=== PATIENT | female | born 1945 | race Caucasian/White ===

== ENCOUNTER 2023-01-13 09:25 | Inpatient (IN) | payer MEDICARE, SELFPAY ==
[2023-01-06 15:10] VITALS: BMI 29.8
[2023-01-13] VITALS (9 sets, daily range): BP systolic 111–152; BP diastolic 63–81; PULSE 62–83; RESP 12–18; TEMP 36.4–36.9; O2SAT 95–99; BMI 29.8
--- NOTE | 2023-01-13 | DI.RAD.S_ITS ---
PROCEDURE: XR LUMBAR SPINE 2-3V INDICATIONS: L4-5 L5-S1 TLIF TECHNIQUE: 3 views of the lumbar spine were acquired. COMPARISON: [facility], MR, MR LUMBAR SPINE WITHOUT CONTRAST, 02/05/2022, 17:24. [facility], RF, LUMBAR SPINE INTERIAMINAR, 10/21/2022, 10:12. [facility], CT, CT LUMBAR SPINE WITHOUT CONTRAST, 01/11/2023, 13:47. FINDINGS: 2 intraoperative fluoroscopy images demonstrate discectomy and posterior fusion at L4-L5 and L5-S1. IMPRESSION: Discectomy and posterior fusion at L4-L5 and L5-S1. Dictated by: Edwin Younger M.D. on 01/13/2023 at 16:48 Approved by: Edwin Younger M.D. on 01/13/2023 at 16:50
[2023-01-13] MEDS: LACTATED RINGERS 1,000 ML 42 ML IV (10:46)
--- NOTE | 2023-01-13 11:08 | PM.PREOP ---
Pre-operative Note Interval Note History & Physical reviewed/Exam performed by Physician: Yes Changes to H&P: No
[2023-01-13] MEDS: CEFAZOLIN 2 GM/100 ML PREMIX 100 ML IV ×2 (12:25→20:57)
[2023-01-13] MEDS: BUPIVACAINE 0.25% (PF) 60 ML, EPINEPHrine 0.15 MG INJ (12:41)
[2023-01-13] MEDS: BUPIVACAINE LIPOSOME 266 MG/20 ML VIAL INJ (12:42)
--- NOTE | 2023-01-13 12:44 | SUR.OPER ---
Prone on spine table, head in foam head support, padded chest and pelvic supports, gel pad at knees, lower legs supported by pillows; nipples, genitalia and toes free of pressure, arms secured on foam padded arm boards at <90 degrees abduction. Tape over blanket at thigh secured to table.
--- NOTE | 2023-01-13 16:08 | P.OP_ITS ---
Operative Date/Time/Diagnoses Date of procedure: 01/13/23 Time of procedure: 12:30 Pre-op diagnosis: 1. L4-5, L5-S1 post laminectomy syndrome 2. L4-5, L5-S1 spinal stenosis 3. Lumbar radiculopathy Post-op diagnosis: same Procedure & Clinicians Procedure: 1. L4-5, L5-S1 Postero-lateral and posterior interbody fusion 2. L4-5, L5-S1 interbody cage placement. 3. L4-5, L5-S1 decompressive laminectomy with bilateral facetecomies 4. L4-5, L5-S1 Posterior segmental instrumentation 5. [place] of bone marrow from iliac crest 6. Utilization of microsurgical technique and operating microscope 7. Utilization of robotic assisted navigation Same procedure as scheduled: Yes Indications: Patient has been having chronic back pain and worsening lumbar radiculopathy and symptoms of neurogenic claudication. Patient had prior laminectomies at L4-5 L5-S1 level with significant amount of epidural scarring and residual spinal stenosis both centrally and the neural foramen. Patient failed multiple conservative management with worsening pain weakness and numbness in her lower extremity. Patient has been having difficulty performing activity of daily living. After discussing risks benefits of treatment options, patient elected proceed with surgery. Surgeon: Papa Sutherland Minesweeping Officer: Delores Morin Click Yes if Unassisted: No Anesthesia Type: General Operative Notes Closure Type: primary Specimen(s): none sent Prosthetic devices, grafts, tissues, transplants, or devices: Globus CREO MIS screws, Rise cages Applied: catheter Estimated Blood Loss (mL): 250 Blood products transfused: none Procedure in detail: Patient was seen in the preoperative area. Risks and benefits of the surgery was discussed with the patient. Informed consent was obtained from the patient and placed in the chart. Surgical site was marked. Patient was taken to the operative room. General anesthesia was administered. Prophylactic antibiotic was given to the patient less than 30 min before the incision was made. Patient was placed into a prone position on the Jose table. Patient's back was then prepped and draped in the sterile fashion. Time-out was performed at this time. After patient was prepped and draped, patient's PSIS was palpated and marked bilaterally. Small 1 cm incision was made over the PSIS for placement of the reference probes. Two trocar was placed into the PSIS 1 on each side. The reference probe was attached to the trocar of the reference apparatus. At this time the C-arm imaging was used to confirm AP and lateral of L4-L5, L5- S1 vertebrae and merged the C-arm imaging using the [employer] robotic navigation system with the CT of the lumbar spine. After successful merging was completed and confirmed, skin marker was used to yenni out the skin incision using the [employer] robotic arm. Bilateral incision was made at this time. Pre templated trajectory was used and guided using the [employer] robotic navigation system for bilateral L4, L5, S1 pedicle screw placement. This was done by using the robotic arm to guide the high-speed bur to make a cortical entry point. Next a drill was placed also using the robotic arm and guided using the navigation system drilling partially through bilateral L4, L5 and S1 pedicles. Next L4, L5, S1 pedicle screws it was pre templated and measured was placed onto the power ems driver and inserted into the pedicles bilaterally. After all 6 screws were placed C-arm imaging was taken of both AP and lateral to confirm the placement. Excellent placement of the screws were confirmed and a matched precisely with the pre planned screw placement using the navigation system. MARs retractor was inserted using Shelby.tvivation guidence. Globus MARS retractors was placed inside the incision and docked onto the L4 and L5 lamina. Using microsurgical technique and operating microscope, a L4, L5 laminectomy and L4-5, L5-S1 facetectomy was performed using a Kerrison rongeur. The laminectomy and facetectomy was performed in order to decompress patient's cauda equina as well as the nerve roots exiting at the L4-5, L5-S1 level. Patient was found have severe lateral recess and neural foramen stenosis which was fully decompressed after the laminectomy facetectomy. More than 75% of the facets were removed during the process of decompression rendering L4-5, L5-S1 level grossly unstable and required a fusion procedure at the same time. The disc space at L4-5, L5-S1 was identified, and a total diskectomy was performed at L4-5, L5-S1 level. The endplates were decorticated using a rasp and shaver. The total diskectomy and decortication was performed at L4-5, L5-S1 level in order to to accomplish a L4- 5, L5-S1 fusion. The local bone from the laminectomy and facetectomy was saved for local bone grafting. After the total diskectomy and decortication was completed, Trifecta bone graft material was combined with local bone that was harvested earlier. At this time, a separate skin is incision was made over the iliac crest. A Jamshidi needle was inserted into the iliac crest through a separate skin incision. 5 cc of bone marrow aspiration was obtained through the separate skin incision using a Jamshidi needle from the iliac crest. The bone marrow aspiration was combined with local bone and the Trifecta bone grafting material. The bone grafting material was placed into the L4-5, L5-S1 interbody space along with a expandable cage. The cage was expanded to its maximum height using the torque limiting screwdriver. The disc preparation as well as the cage insertion were also performed under navigation guidance. After the cage was placed, AP and lateral C-arm imaging was taken to confirm placement of the cage and excellent position was confirmed. Globus MARS retractor was inserted and docked onto the L4-5, L5-S1 posterolateral gutter on the right side. Using the power drill, posterior- lateral decortication was performed at L4-5, L5-S1 level until bleeding cortical bone was identified. The remaining bone grafting material was placed into the L4-5, L5-S1 posterior lateral gutter he order to accomplish posterolateral fusion at the L4-5, L5-S1 level. At this time the tulips were attached to the L4, L5, S1 pedicle screw shanks. After measuring the length of the rods, they were inserted into the tulips of the pedicle screws and locked in place using locking caps and torque limiting screwdriver bilaterally. Total 6 caps and 2 titanium rods was used in order to complete the posterior instrumentation construct. After all the hardware was placed, and confirmed with AP and lateral C-arm imaging, the wound was then irrigated with sterile normal saline and packed with Ray-Sofia gauze for 3 min to accomplish hemostasis. After the gauze was removed the deep fascia was closed with #1 Vicryl suture. The subcutaneous layer was closed with 2-0 Vicryl. The skin was closed with skin werner. Patient tolerated the procedure well. There were no complications. Neuro monitoring system was used to monitor patient's neurologic status throughout entire procedure. There was no disturbance of the neural monitoring signals throughout the case. The Operation could not have been safely performed without compromising the technical result or length of the procedure, without the assistance of a skilled surgical scrub technician. The surgical scrub technician was medically necessary for proper positioning, retraction and manipulation of instruments, proper exposure, surgical preparation, and manipulation of tissue. Complications: none Post-operative Condition: stable Disposition: PACU Plan for aftercare: Admit to inpatient hospital
[2023-01-13] MEDS: HYDROMORPHONE 1 MG INJ IV ×2 (16:31→16:36)
--- NOTE | 2023-01-13 16:55 | SUR.PHASEI ---
left upper lip skin tear and bilateral anterior hip redness and skin tears from positioning and intubation.
[2023-01-13] MEDS: hydrOXYzine pamoate 25 MG CAPSULE PO (18:00)
[2023-01-13] MEDS: HYDROCODONE/ACET 5/325 TABLET 1 TAB PO (18:02)
[2023-01-13] MEDS: LACTATED RINGERS 1,000 ML 125 ML IV (18:04)
[2023-01-13] MEDS: ONDANSETRON 4 MG/2 ML INJ IV (18:04)
--- NOTE | 2023-01-13 19:02 | PC.NURSE ---
Patient arrived from Post op at 1715, VSS, afebrile on RA. Instructed to keep HOB flat only up for brief periods until 7a.m. Sensation to BLE's intact per baseline. She denies any numbness/tingling to extremities. dressing to back c/d/i. She is instructed on IS use, q 2 turning, latif in place, LR at 125ml/hr and she reports pain is well controlled. Continuous monitoring.
[2023-01-13] MEDS: DOCUSATE 100 MG CAPSULE PO (20:56)
[2023-01-13] MEDS: HYDROMORPHONE 0.5 MG INJ IV ×2 (20:57→23:17)
[2023-01-14] VITALS: BP 124/68; PULSE 66; RESP 17; TEMP 36.4; O2SAT 96
[2023-01-14] MEDS: HYDROCODONE/ACET 10/325 TABLET 1 TAB PO ×6 (00:07→20:49)
[2023-01-14] MEDS: hydrOXYzine pamoate 25 MG CAPSULE PO ×3 (00:07→18:12)
[2023-01-14] MEDS: HYDROMORPHONE 0.5 MG INJ IV (01:53)
[2023-01-14] MEDS: LACTATED RINGERS 1,000 ML 125 ML IV (03:04)
[2023-01-14] MEDS: CEFAZOLIN 2 GM/100 ML PREMIX 100 ML IV (04:22)
[2023-01-14 04:50] LABS: Hematocrit 33.4 % (36-46); Hemoglobin 11.5 g/dL (12.0-16.0)
[2023-01-14 05:01] VITALS: BP 92/64; PULSE 62; RESP 18; TEMP 36.8; O2SAT 94
--- NOTE | 2023-01-14 06:13 | PM.PNPO.1 ---
Subjective Subjective Date Patient Seen: 01/14/23 Time Patient Seen: 06:13 Exam Vital Signs (past 8 hours): - 01/14/23 00:00 01/14/23 05:01 Temperature 97.5 F L 98.2 F Pulse Rate 66 62 Respiratory Rate 17 18 Blood Pressure 124/68 92/64 Pulse Oximetry 96 94 Oxygen Delivery Method Nasal Cannula Oxygen Flow Rate 0 Objective Labs 01/14/23 04:20 Labs: Laboratory Results - last 24 hr 01/14/23 04:20 Hgb 11.5 L Hct 33.4 L PFSH Medical History (Updated 01/14/23 @ 06:14 by Delores Morin PA-C) Ankle edema Frequent UTI HTN (hypertension) Surgical History (Updated 01/14/23 @ 06:14 by Delores Morin PA-C) H/O total hip arthroplasty History of cholecystectomy History of tonsillectomy Hx of discectomy S/P cataract extraction and insertion of intraocular lens Social History household members: spouse Smoking Status: Former smoker Assessment & Plan Post-op Assessment and plan (1) S/P lumbar fusion: (2) Dural tear: Postoperative Procedures: Procedures Operation Date: 01/13/23 11:45 Actual Procedure Side Surgeon p L4-5, L5-S1 TLIF with posterior instrumentation -Robot Papa Sutherland MD
--- NOTE | 2023-01-14 06:57 | P.DS_ITS ---
History of Present Illness History of Present Illness Date Patient Seen: 01/14/23 Time Patient Seen: 06:57 Chief complaint: TLIF Narrative: Operative Date/Time/Diagnoses Date of procedure: 01/13/23 Time of procedure: 12:30 Pre-op diagnosis: 1. L4-5, L5-S1 post laminectomy syndrome 2. L4-5, L5-S1 spinal stenosis 3. Lumbar radiculopathy Post-op diagnosis: same Procedure & Clinicians Procedure: 1. L4-5, L5-S1 Postero-lateral and posterior interbody fusion 2. L4-5, L5-S1 interbody cage placement. 3. L4-5, L5-S1 decompressive laminectomy with bilateral facetecomies 4. L4-5, L5-S1 Posterior segmental instrumentation 5. [place] of bone marrow from iliac crest 6. Utilization of microsurgical technique and operating microscope 7. Utilization of robotic assisted navigation Same procedure as scheduled: Yes Indications: Patient has been having chronic back pain and worsening lumbar radiculopathy and symptoms of neurogenic claudication.? Patient had prior laminectomies at L4-5 L5-S1 level with significant amount of epidural scarring and residual spinal stenosis both centrally and the neural foramen. Patient failed multiple conservative management with worsening pain weakness and numbness in her lower extremity.? Patient has been having difficulty performing activity of daily living.? After discussing risks benefits of treatment options, patient elected proceed with surgery. Surgeon: Papa Sutherland Terrazzo Worker: Delores Morin Click Yes if Unassisted: No Anesthesia Type: General Operative Notes Closure Type: primary Specimen(s): none sent Prosthetic devices, grafts, tissues, transplants, or devices: Globus CREO MIS screws, Rise cages Applied: catheter Estimated Blood Loss (mL): 250 Blood products transfused: none Discharge Providers Provider Date of admission: 01/13/23 09:25 Discharge Date: 01/14/23 Primary care physician: BRIDGET Valladares Consults: 01/13/23 17:15 Consult to Occupational Therapy Evaluate & Treat Comment: Physician Instructions: Evaluate and treat Consult to Physical Therapy Evaluate & Treat Comment: Physician Instructions: Evaluate and Treat Discharge provider: Delores Morin PA-C Summary Hospital Course Discharge Diagnosis: L4-5, L5-S1 post laminectomy syndrome, L4-5, L5-S1 spinal stenosis, Lumbar radiculopathy; s/p lumbar fusion Hospital Course: Ms Ceron's hospital course was unremarkable. During surgery, a dural tear on the right was repaired w/ duragen and tisseel, and her HOB was left flat overnight. On the morning of POD# 1, the HOB was raised to about 30 degrees during interview and exam. Pt denied headache. She has a h/o spinal headache following anesthetic for childbirth and knows what a CSF-related KHAN feels like. She was comfortable and wanted to go home later in the day if possible. She had not yet worked w/ PT and still had a latif catheter in place. Exam Vital Signs (past 8 hours): - 01/14/23 00:00 01/14/23 05:01 Temperature 97.5 F L 98.2 F Pulse Rate 66 62 Respiratory Rate 17 18 Blood Pressure 124/68 92/64 Pulse Oximetry 96 94 Oxygen Delivery Method Nasal Cannula Oxygen Flow Rate 0 Narrative Exam Narrative: 5/5 strength in hip flexors, quadriceps, hamstrings, DF, PF, EHL bilaterally. Sensation to light touch intact throughout BLE. Calves soft, compressible, nontender and without palpable cords or masses. Dressing placed intraoperatively is CDI. Objective Labs 01/14/23 04:20 Labs: Laboratory Results - last 24 hr 01/14/23 04:20 Hgb 11.5 L Hct 33.4 L PFSH Medical History (Updated 01/14/23 @ 06:14 by Delores Morin PA-C) Ankle edema Frequent UTI HTN (hypertension) Surgical History (Updated 01/14/23 @ 06:14 by Delores Morin PA-C) H/O total hip arthroplasty History of cholecystectomy History of tonsillectomy Hx of discectomy S/P cataract extraction and insertion of intraocular lens Social History household members: spouse Smoking Status: Former smoker Discharge Assessment & Plan Assessment and Plan Assessment: L4-5, L5-S1 post laminectomy syndrome, L4-5, L5-S1 spinal stenosis, Lumbar radiculopathy; s/p lumbar fusion Plan of Treatment: Pt may discharge home today if the following parameters are met: 1) No spinal headache. If pt has headache, return to bedrest w/ HOB flat, alert surgical team (Ena or Mikel). 2) PT feels pt appropriate for discharge home. 3) Pt voiding independently. 4) Pain continues to be well-controlled w/ oral medication. Discharge Plan Discharge Plan Patient Disposition: Home Discharge orders & Medications Prescriptions: New hydrocodone-acetaminophen 5-325 mg Tablet 1 tab PO Q4HR PRN (Reason: Pain, Moderate (4-6)) Qty: 60 0RF docusate sodium 100 mg Capsule 100 mg PO BID PRN (Reason: constipation) Qty: 60 1RF hydroxyzine pamoate 25 mg Capsule 25 mg PO Q4HR PRN (Reason: muscle spasm) Qty: 60 0RF Continued hydrochlorothiazide 25 mg Tablet 25 mg PO DAILY Follow up/Referrals: Nahomy Garvey ARNP [Primary Care Provider] - Papa Sutherland MD [Physician] - As previously scheduled (Follow up with Dr Sutherland on 01/26/2023 @ 2:20 pm at [facility] office in [place].) Diet/Activity/Treatments Diet: Diet as Tolerated Activity: No deep bending or twisting at the waist. No lifting more than 10 pounds. Cold/Heat Therapy: Heating pad to low back as needed for pain. Skin/Wound/Dressing Care Report to your healthcare provider any signs of infection, such as:: chills, fever, night sweats, unusual drainage and unusual redness Dressing: May shower. Keep dressing as dry as possible. If dressing becomes wet or dirty, may remove and replace with clean, dry gauze. No bathing or otherwise soaking incisions. Do not apply any creams, lotions, or ointments to incisions. Visit Report/Discharge Packet Instructions: DI for Transforaminal Lumbar Interbody Fusion, DI for Prescription Opioid Use Stand Alone Forms: Patient Portal/API, Stroke Signs & Symptoms, Surgery Discharge Discharge Data Primary Care Provider: Nahomy Garvey
[2023-01-14 07:00] VITALS: BP 114/62; PULSE 61; RESP 16; TEMP 36.9; O2SAT 96
[2023-01-14] MEDS: DOCUSATE 100 MG CAPSULE PO ×2 (08:06→20:48)
--- NOTE | 2023-01-14 08:52 | PT.IIE ---
Current Diagnoses Spinal stenosis, lumbar region with neurogenic claudication (01/13/23) Postlaminectomy syndrome, not elsewhere classified (01/13/23) Arthrodesis status (01/13/23) Surgery Performed Operation Date: 01/13/23 11:45 Actual Procedures p L4-5, L5-S1 TLIF with posterior instrumentation -Robot - Papa Sutherland MD Surgical History (Last Updated 01/06/23 @ 15:12 by Francisco Gaspar, RN) H/O total hip arthroplasty History of cholecystectomy History of tonsillectomy Hx of discectomy S/P cataract extraction and insertion of intraocular lens Medical History (Last Updated 01/06/23 @ 15:08 by Francisco Gaspar RN) Ankle edema Frequent UTI HTN (hypertension) Physical Therapy Inpatient Evaluation/Re-Eval M1 PT/OT-IP Prior Functional Status Start: 01/14/23 12:04 Freq: NEEDED Status: Active Protocol: Document 01/14/23 12:44 AB (Rec: 01/14/23 13:08 AB [id number]) Medical Review Prior Functional Status Medical History Reviewed Yes Communication Independent Mobility and Gait Pt did not use AD for mobility . Activities of Daily Living and IADL's Pt had pain with ADL and IADL needs. Social History Household Members spouse Living Arrangements House Number of Floors (Floors) Two Floors Number of Stairs To Enter/Railing? Pt able to stay on the main floor with no steps to enter. Home Environment High Toilet,Tub/Shower Home Equipment Front Wheel Walker,Four Wheel Walker,Straight Cane,Bedside Commode,Shower Seat without Backrest,Hand Held Shower,Grab Bars Near Toilet,Grab Bars In Shower Additional Social History Comment Pt states has supportive to be able to asisst at home. M1 PT/OT-IP Prior Functional Status Start: 01/14/23 12:44 Freq: NEEDED Status: Active Protocol: Document 01/14/23 12:44 AB (Rec: 01/14/23 13:08 AB [id number]) Medical Review Prior Functional Status Medical History Reviewed Yes Communication Independent Mobility and Gait Pt did not use AD for mobility . Activities of Daily Living and IADL's Pt had pain with ADL and IADL needs. Social History Household Members spouse Living Arrangements House Number of Floors (Floors) Two Floors Number of Stairs To Enter/Railing? Pt able to stay on the main floor with no steps to enter. Home Environment High Toilet,Tub/Shower Home Equipment Front Wheel Walker,Four Wheel Walker,Straight Cane,Bedside Commode,Shower Seat without Backrest,Hand Held Shower,Grab Bars Near Toilet,Grab Bars In Shower Additional Social History Comment Pt states has supportive to be able to asisst at home. M2 PT-IP Current Condition Start: 01/14/23 12:44 Freq: NEEDED Status: Active Protocol: Document 01/14/23 12:44 AB (Rec: 01/14/23 13:08 AB [id number]) Physical Therapy Current Condition Current Condition Evaluation Date 01/14/23 Treatment Diagnosis s/p lumbar TLIF L4-5, L5-S1 Onset Date 01/13/23 M3 PT-IP Subjective Start: 01/14/23 12:44 Freq: NEEDED Status: Active Protocol: Document 01/14/23 12:44 AB (Rec: 01/14/23 13:08 AB [id number]) Subjective Physical Therapy Visit Type Type Initial Evaluation Visit Start Time 08:52 Visit Stop Time 09:32 Total Visit Minutes 42 Physical Therapy Visit Comments Patient Comments Pt presents in bed with in room perofrming OT eval. The pt is agreeable to PT eval this morning. Therapy Pain Assessment Pain When Pain Assessed During Mobility Pain Present Pain Present Pain Reported Location Lower Back Intensity 3 Pain Management Techniques Re-positioning M4 PT-IP Mobility and Gait Start: 01/14/23 12:44 Freq: NEEDED Status: Active Protocol: Document 01/14/23 12:44 AB (Rec: 01/14/23 13:08 AB [id number]) PT-Bed Mobility Assessment Rolling Type of Rolling Log Rolling Level of Assist Standby Assistance Supine to Sit Supine to Sit Standby Assistance Sit to Supine Sit to Supine Standby Assistance Scooting Scooting to Edge of Bed Standby Assistance Scooting Up and Down in Bed Standby Assistance PT-Transfer Assessment Sit to and From Stand Sit to and from Stand Minimal Assistance,2 Person Assistance Equipment Transfer Assistive Device Gait Belt,Front Wheeled Walker Transfers Transfer Destination Bed,Chair Transfer Technique Stand Step Pivot Transfer Ability Level of Assist Contact Guard Assistance,2 Person Assistance Comments Mobility Comments 2PA was required to perform STS and transfer due to pt having posterior LOB on to bed when attempting STS for the first time, due to weakness and bilateral LEs giving out. Pt's BP in supine is 105/45 mmHg, elevated to 114/48 in sitting and 126/68 after a few minutes in sitting, and dropped to 103/58 accompanied by mild lightheadedness. Further mobility was not assessed due to orthostatic hypotension. Pt transferred chair<>bed and returned to supine position. BP improved to 113/65 in supine. All of the pt's needs were met and call light was placed within reach. RN was notified of findings. Gait Assessment Comments Gait Comments Further mobility was not assessed due to orthostatic hypotension. However, pt is able to take a couple of steps forward and laterally to perform bed<>chair transfer. Stair Climbing Assessment Comments Stair Climbing Comments Further mobility was not assessed due to orthostatic hypotension. PT-Balance Assessment Sitting Balance and Reactions Static Sitting Balance Ability Good Dynamic Sitting Balance Ability Fair Standing Balance and Reactions Static Standing Balance Ability Poor Dynamic Standing Balance Ability Poor Device Used FWW M5 PT-IP Objective Assessments Start: 01/14/23 12:44 Freq: NEEDED Status: Active Protocol: Document 01/14/23 12:44 AB (Rec: 01/14/23 13:08 AB [id number]) Orientation Orientation/Cognition Level of Alertness Alert Orientation Name,Age,Birthday,Month,Date, Year,Day of Week,Place, Situation Language Function Ability No Deficits Noted Safety Awareness Understands Safety Issues Memory Description No Deficits Noted Gross Range of Motion Upper Extremity ROM Assessment Within Functional Limits Lower Extremity ROM Assessment Within Functional Limits Strength Upper Extremity Strength Assessment Within Functional Limits Lower Extremity Strength Assessment Bilaterally Impaired Comments Strength Comments bilateral hip flexors: 3+/5 bilateral knee extensors: 4/5 M6 PT-IP Treatment Start: 01/14/23 12:44 Freq: NEEDED Status: Active Protocol: Document 01/14/23 12:44 AB (Rec: 01/14/23 13:08 AB [id number]) Physical Therapy Treatment Education Education Provided Precautions,Weight Bearing Status,Post-Op Packet,Safety Brace Education Patient M7 PT-IP Assessment and Plan Start: 01/14/23 12:44 Freq: NEEDED Status: Active Protocol: Document 01/14/23 12:44 AB (Rec: 01/14/23 13:08 AB [id number]) PT Summary Assessment and Plan Potential Rehabilitation Potential Good Status of Condition at Evaluation Stable Summary Impairments Pain,ROM,Strength,Balance,Bed Mobility,Transfers,Gait, Activity Tolerance Assessment Summary Evelia Ceron is a 77 year old female patient who is s/p lumbar TLIF L4-5, L5-S1 performed on 01/13/23. Today's PT evaluation revealed BLE weakness, and the pt had orthostatic hypotension when performing mobility. Currently , she required SBA for bed mobility, but required Juan to [facility] x2 for STS and transfers due to weakness, as detailed above. Further mobility was not performed this session due to orthostatic hypotension. Based on her current level of function and expected progress , PT recommends discharge to home with assistance. She would benefit from skilled PT intervention to help her return to her highest level of function. Goals Bed Mobility Goal Independent Transfer Goal Standby Assistance,Front Wheeled Walker Gait Goal Standby Assistance,Front Wheel Walker Gait Distance 100 Other Goals Pt to ambulate 100 ft independently with LRAD to show improving ability to perform functional mobility. Pt to perform transfer independently with FWW or no AD to show improving ability to perform functional mobility . Days to Meet Goals 5 Frequency of Treatment Frequency Of Treatment Twice a Day Treatment Plan Physical Therapy Treatment Plan Bed Mobility Training,Transfer Training,Gait Training, Therapeutic Exercise,Balance Retraining,Post Op Education, Discharge Planning,Hot or Cold Pack,Neuromuscular Re-ed, Coordination Retraining,Manual Therapy Precautions Lumbar Precautions Log Roll,No Twisting,Limit Bending,Lifting Restriction of 10 lbs,Gait Belt above Incisional Area Weight Bearing Status Weight Bearing Status Weight Bear as Tolerated Recommendations To Nursing Amount of Assist Needed 2 Person Assist Discharge Recommendations PT Discharge Recommendations Home with Assistance, Outpatient PT Other Discharge Recommendations Outpatient PT is recommended at surgeon's discretion to improve deficits. Transportation Needs at Discharge Private Vehicle
--- NOTE | 2023-01-14 09:32 | OT.IP.EVAL ---
Current Diagnoses Spinal stenosis, lumbar region with neurogenic claudication (01/13/23) Postlaminectomy syndrome, not elsewhere classified (01/13/23) Arthrodesis status (01/13/23) Surgery Performed Operation Date: 01/13/23 11:45 Actual Procedures p L4-5, L5-S1 TLIF with posterior instrumentation -Robot - Papa Sutherland MD Past Medical History (Last Updated 01/06/23 @ 15:08 by Francisco Gaspar, RN) Ankle edema Frequent UTI HTN (hypertension) Surgical History (Last Updated 01/06/23 @ 15:12 by Francisco Gaspar RN) H/O total hip arthroplasty History of cholecystectomy History of tonsillectomy Hx of discectomy S/P cataract extraction and insertion of intraocular lens Occupational Therapy Inpatient Evaluation/Re-Eval M1 PT/OT-IP Prior Functional Status Start: 01/14/23 12:04 Freq: NEEDED Status: Active Protocol: Document 01/14/23 08:48 [facility] (Rec: 01/14/23 12:31 [facility] [id number]) Medical Review Prior Functional Status Communication Independent Activities of Daily Living and IADL's Pt had pain with ADL and IADL needs. Social History Household Members spouse Living Arrangements House Number of Floors (Floors) Two Floors Number of Stairs To Enter/Railing? Pt able to stay on the main floor with no steps to enter. Home Environment High Toilet,Tub/Shower Home Equipment Front Wheel Walker,Four Wheel Walker,Straight Cane,Bedside Commode,Shower Seat without Backrest,Hand Held Shower,Grab Bars Near Toilet,Grab Bars In Shower Additional Social History Comment Pt states has supportive to be able to assist at home. M2 OT-IP Current Condition Start: 01/14/23 12:04 Freq: Status: Active Protocol: Document 01/14/23 08:48 [facility] (Rec: 01/14/23 12:31 [facility] [id number]) Occupational Therapy Current Condition Current Condition Evaluation Date 01/14/23 Treatment Diagnosis S/P L4-5 , L5-S1 PLIF Diagnosis Onset Date 01/13/23 M3 OT- IP Subjective and Pain Start: 01/14/23 12:04 Freq: Status: Active Protocol: Document 01/14/23 08:48 [facility] (Rec: 01/14/23 12:31 [facility] [id number]) OT- Subjective Occupational Therapy Visit Type Type Initial Evaluation Visit Start Time 08:48 Visit Stop Time 09:32 Total Visit Minutes 44 Occupational Therapy Visit Comments Patient Comments Pt agreed to get up. PT also present for therapy eval. Patient/Caregiver Goals To go home. OT Pain Assessment Pain When Pain Assessed At Rest Pain Present Pain Present Pain Reported Location Lower Back Intensity 3 Scale Used Numeric (0 - 10) M4 OT- IP ADL's Start: 01/14/23 12:04 Freq: Status: Active Protocol: Document 01/14/23 08:48 [facility] (Rec: 01/14/23 12:31 [facility] [id number]) OT [id number]-[id number] General Evaluation Self-Feeding Ability Independent OT ADL-Grooming Comments OT Grooming Comments Not performed. OT ADL-Oral Care Comments Oral Care Comments Educated best for pt to hinge at her hips or just spit into a cup to best follow her back precautions. OT ADL-Dressing General Eval Lower Body Dressing Ability Maximum Assistance Areas Needing Assistance Socks Comments OT Dressing Comments At this time pt would benefit from getting LB dressing equipment or have her to assist. Able to show LB dressing equipment to pt. OT ADL-Toileting Comments OT Toileting Comments At this time pt would have difficulty to wipe on her own as pt wipes from the front even after a bowel movement. Able to show pt toilet paper aid which would increased her ease and safety to be able follow her back precautions during toileting needs. In addition use of wet one and wearing a pad at night. OT ADL-Bathing Comments OT Bathing Comments Pt will benefit from assist from her . M5 OT- IP IADL's Start: 01/14/23 12:04 Freq: Status: Active Protocol: Document 01/14/23 08:48 [facility] (Rec: 01/14/23 12:31 [facility] [id number]) OT-Instrumental Activities of Daily Living Deficits IADL Deficits Identified Deficits Home Safety Awareness Awareness of Need for Assistance at Home Good Awareness Ability to Problem Solve Emergency Able to Problem Solve Situations Meal Preparation Meal Preparation Comments At this time her will assist her. Drum Worker Drum Worker Comments At this time her will assist her. M6 OT- IP Functional Cognition Start: 01/14/23 12:04 Freq: Status: Active Protocol: Document 01/14/23 08:48 [facility] (Rec: 01/14/23 12:31 [facility] [id number]) Cognitive Factors Limiting Selfcare Function Cognitive Ability Level of Alertness Alert Patient Orientation Name,Age,Birthday,Month,Date, Year,Day of Week,Place, Situation Attention Span Ability Capable of Focused Attention, Capable of Sustained Attention Ability to Follow Commands Able to Follow One Step Commands Cognitive Comments Cognitive Assessment Comments Pt able to follow directions for ADL and mobility needs. Pt needing safety reminders to use her hands to push up from surfaces sitting up from and to reach back before sitting down. OT- Vision and Hearing OT- Hearing Assessment OT- Hearing Assessment WFL OT- Vision Assessment Visual Acuity Glasses All The Time M7 OT- IP Mobility and Balance Start: 01/14/23 12:04 Freq: Status: Active Protocol: Document 01/14/23 08:48 [facility] (Rec: 01/14/23 12:31 [facility] [id number]) OT- Bed Mobility Assessment Supine to Sit Supine to Sit Assist Standby Assistance Sit to Supine Sit to Supine Assist Standby Assistance Scooting Scooting to Edge of Bed Standby Assistance OT-Transfer Assessment Sit to and From Stand Sit to and from Stand Minimal Assistance Transfers Transfer Ability Contact Guard Assistance,2 Person Assistance Technique Transfer Destination Bed,Chair Transfer Technique Stand Step Pivot Devices Transfer Assistive Devices Gait Belt,Front Wheeled Walker Comments Mobility Comments SBA for bed mobility needs. PIOTR to stand to FWW and pt buckling at her knees and having to sit down, reattempted and CGA x2 to stand mainly for safely due to prior her knees buckling. Pt able to transfer to the recliner and feeling light headed but felt it was from her medications. Opted to get pt back to bed with CGA x2 with FWW and nursing notified. BP supine 105/45, sitting 114/ 48, 126/68, 114/60, after standing 103/58 and back in bed 113/65. OT- Balance Assessment Sitting Balance and Reactions Static Sitting Balance Ability Good Dynamic Sitting Balance Ability Fair Standing Balance and Reactions Static Standing Balance Ability Poor M8 OT- IP Objective Assessments Start: 01/14/23 12:04 Freq: Status: Active Protocol: Document 01/14/23 08:48 [facility] (Rec: 01/14/23 12:31 [facility] [id number]) OT Gross Range of Motion Upper Extremity Range of Motion Assessment Within Functional Limits OT Strength Upper Extremity Strength Assessment Within Functional Limits M9 OT- IP Assessment and Plan Start: 01/14/23 12:04 Freq: Status: Active Protocol: Document 01/14/23 08:48 [facility] (Rec: 01/14/23 12:31 [facility] [id number]) OT Summary Assessment and Plan Potential Rehabilitation Potential Good Analytic Complexity at Evaluation Low Summary OT Impairments Pain,Balance,Functional Mobility,Dressing,Toileting, Bathing,Toilet Transfers, Shower Transfers,Activity Tolerance Progress Towards Goals Slow Progress due to Medical Issues Assessment Summary Pt low complexity and main barriers are her legs buckling initially when getting up , having orthostatic BP at this time, and will needing assist for dressing, toileting, and showering needs. Pt would benefit from getting LB dressing equipment and a toilet paper aid. Pt to go home when medically stable. Goals Grooming Goal Independent Dressing Goal Independent Toileting Goal Independent Bathing Goal Independent Toilet Transfer Goal Independent Shower Transfer Goal Independent Patient/Caregiver Education Goal Demonstrate Energy Conservation and Pacing Days to Meet Goals 5 Frequency of Treatment Frequency Of Treatment Once a Day Treatment Plan OT Treatment Plan ADL Training,Functional Mobility,Patient/Family Education,Discharge Planning Discharge Recommendations OT Discharge Recommendations Home with Assistance Home Equipment Needs Lb dressing equipment, toilet paper aid Transportation Needs at Discharge Private Vehicle
[2023-01-14 12:00] VITALS: BP 101/53; PULSE 66; RESP 16; TEMP 36.8; O2SAT 93
--- NOTE | 2023-01-14 13:25 | CM.DANOTE ---
Initial DCP Assessment Note Pt is a 77 yo female, resident of [place], [place] now POD#[address] Sutherland PCP: Nahomy Garvey Payer: [employer] Reviewed chart, pt discussed in multidisciplinary rounds this morning. Therapy has cleared pt for return home w/family to assist and pt has planned for home, DC order from Ortho has already been initiated this morning. Met w/patient and spouse to introduce self and role. Patient lives at home w/spouse in [place] and is Indp. in all aspects, drives. Patient has hx of HH after her hip surgery, cannot remember which agency. No hx SNF Patient expects to discharge home w/spouse, says she has not been up w/PT yet and BP has been low this morning so she may need to stay this evening, return home tomorrow. No barriers identified at this time to patient's safe discharge home w/family to assist; close outpatient f/u recommended. CM team will plan to follow closely in case any DC needs or concerns arise. TENNILLE Sanchez Discharge Planning/Care Management CM Discharge Assessment Start: 01/14/23 13:19 Freq: Status: Active Protocol: Document 01/14/23 13:23 [facility] (Rec: 01/14/23 13:25 [facility] [id number]) Discharge Planning Assessment Assigned Food Service Utility Worker TENNILLE Byrd DPOA/Assigned Designee Name Narinder rudolph spouse Contact Information [phone] Advance Directives? Yes Advance Directives on File Yes History Provided By Patient,Medical Record Prior Living Arrangements House Household Members spouse Type of transporation used prior to Drives own vehicle admit Independent with ADL's Yes Is patient alert and oriented? Yes Needs Assistance With Home Chores / Shopping Patient/Family Preference OP PT Therapy Barriers to Discharge No Discharge Plan Home Transportation Arrangement Spouse Referrals Initiated None needed Whiteboard Updated in Patient Room with Yes name and ext. # of Food Service Utility Worker Comment Goal for discharge is home w/ spouse, DOD today or tomorrow
--- NOTE | 2023-01-14 14:08 | PC.NURSE ---
Addendum entered by Suzan Montano R.N. 01/14/23 14:31: PA returned call informing that some numbness is normal. RN at bedside notified patient. PT at bedside working with patient. Original Note: Patient's HCTZ medication held this a.m. for soft BP and patient getting 10/325 mg hydrocodone. Patient reports pain well controlled this a.m. with PRN po medications. She is able to stand with PT, this a.m. with a slight drop in BP she denies feeling dizzy. She has latif dc'd at 11:15 this a.m. and is able to void at 1330.She reports some numbness to B thighs (on the top) after getting up to the BSC, but normal sensation below. She is able to void x1 small void at 1330. Endorsed to oncoming RN notified PA of new numbness to tops of thighs. Pt is due to work with PT once again this afternoon. supportive at bedside.
--- NOTE | 2023-01-14 14:24 | PT.IPTN ---
Current Diagnoses Spinal stenosis, lumbar region with neurogenic claudication (01/13/23) Postlaminectomy syndrome, not elsewhere classified (01/13/23) Arthrodesis status (01/13/23) Surgery Performed Operation Date: 01/13/23 11:45 Actual Procedures p L4-5, L5-S1 TLIF with posterior instrumentation -Robot - Papa Sutherland MD Physical Therapy Treatment Note M2 PT-IP Current Condition Start: 01/14/23 12:44 Freq: NEEDED Status: Active Protocol: Document 01/14/23 12:44 AB (Rec: 01/14/23 13:08 AB [id number]) Physical Therapy Current Condition Current Condition Evaluation Date 01/14/23 Treatment Diagnosis s/p lumbar TLIF L4-5, L5-S1 Onset Date 01/13/23 M3 PT-IP Subjective Start: 01/14/23 12:44 Freq: NEEDED Status: Active Protocol: Document 01/14/23 15:02 TS (Rec: 01/14/23 15:29 TS [id number]) Subjective Physical Therapy Visit Type Type Treatment Note Visit Start Time 14:24 Visit Stop Time 14:56 Total Visit Minutes 32 Notes Spouse present Number of CULTURIST Visits 1 Physical Therapy Visit Comments Patient Comments Pt found resting in bed, reports numbness and weakness in LEs and a sensation she can 't describe in her feet. Pt agreeable to PT. Therapy Pain Assessment Pain When Pain Assessed During Mobility Pain Present Pain Present Pain Reported M4 PT-IP Mobility and Gait Start: 01/14/23 12:44 Freq: NEEDED Status: Active Protocol: Document 01/14/23 15:02 TS (Rec: 01/14/23 15:29 TS [id number]) PT-Bed Mobility Assessment Rolling Type of Rolling Log Rolling Level of Assist Standby Assistance Supine to Sit Supine to Sit Standby Assistance Sit to Supine Sit to Supine Standby Assistance Scooting Scooting to Edge of Bed Standby Assistance Scooting Up and Down in Bed Moderate Assistance PT-Transfer Assessment Sit to and From Stand Sit to and from Stand Minimal Assistance,1 Person Assistance,Use of Upper Extremities Equipment Transfer Assistive Device Gait Belt,Front Wheeled Walker Comments Mobility Comments Pt found resting in bed, spouse present for caregiver training. BP in supine 123/49. Pt was educated on no bending , no lifting and no twisting spinal precautions prior to mobility. She performed logroll SBA, used side of bed to help pull self onto side. Supine to sit SBA with BUE support, pt sat EOB for BP, 119/59, she reported some dizziness. Spouse was instructed in donning/doffing of gait belt. Sit to stand with FWW and from spouse Basil x1, pt is slow to stand and reports legs feeling weak. BP taken in standing 117/37, pt reports no dizziness. She ambulated in room ~40'SBA with FWW, pt reports dizziness and requested to sit EOB. BP taken in sitting 122/72. Sit to stand Basil x1 from spouse, pt reports increased dizziness and requested back to bed. Supine to sit SBA, pt demonstrates good carryover of logroll. Pt was left back in bed, all needs met, spouse in room, RN and SW notified of pt 's symptoms and hypotension. Gait Assessment Gait Gait Assistance Required: Standby Assistance Distance (Feet) 40 Assistive Devices Assistive Device Gait Belt,Front Wheeled Walker Orthotic/Prosthetic Devices or Brace: No Gait Deviations General Gait Pattern Decreased Stride Length, Decreased Feet Clearance Factors Limiting Gait Function Factors Limiting Gait Function Decreased Activity Tolerance, Decreased Sensation,Decreased Strength,Limited Range of Motion,Pain,Poor Balance Comments Gait Comments See mobility comments PT-Balance Assessment Sitting Balance and Reactions Static Sitting Balance Ability Good Dynamic Sitting Balance Ability Fair Standing Balance and Reactions Static Standing Balance Ability Good Dynamic Standing Balance Ability Fair Device Used FWW M5 PT-IP Objective Assessments Start: 01/14/23 12:44 Freq: NEEDED Status: Active Protocol: Document 01/14/23 12:44 AB (Rec: 01/14/23 13:08 AB [id number]) Orientation Orientation/Cognition Level of Alertness Alert Orientation Name,Age,Birthday,Month,Date, Year,Day of Week,Place, Situation Language Function Ability No Deficits Noted Safety Awareness Understands Safety Issues Memory Description No Deficits Noted Gross Range of Motion Upper Extremity ROM Assessment Within Functional Limits Lower Extremity ROM Assessment Within Functional Limits Strength Upper Extremity Strength Assessment Within Functional Limits Lower Extremity Strength Assessment Bilaterally Impaired Comments Strength Comments bilateral hip flexors: 3+/5 bilateral knee extensors: 4/5 M6 PT-IP Treatment Start: 01/14/23 12:44 Freq: NEEDED Status: Active Protocol: Document 01/14/23 15:02 TS (Rec: 01/14/23 15:29 TS [id number]) Physical Therapy Treatment Education Education Provided Precautions,Weight Bearing Status,Post-Op Packet,Safety Brace Education Patient M7 PT-IP Assessment and Plan Start: 01/14/23 12:44 Freq: NEEDED Status: Active Protocol: Document 01/14/23 15:02 TS (Rec: 01/14/23 15:29 TS [id number]) PT Summary Assessment and Plan Potential Rehabilitation Potential Good Summary Impairments Pain,ROM,Strength,Balance,Bed Mobility,Transfers,Gait, Activity Tolerance Progress Towards Goals Progressing Toward Goals Assessment Summary Evelia made some progress with her mobility this session but remains symptomatic for othostatic hypotension. Her BP in supine 123/49, in sitting 119/59, standing 117/37. Pt reported some dizziness sitting EOB intially when sitting up and with ambulation . She continues to be SBA for all bed mobility and demonstrates good carryover of logroll sequencing. She performed sit to stand x2 w/ Basil from spouse and FWW. Pt has decreased strength/ sensation in LEs making standing difficult. She progressed her gait to ~40' in room SBA, has no buckling or LOB but c/o increasing dizziness. Spouse was present for caregiver training. Spouse was instructed donning/ doffing of gait belt and handplacement for sit to stands/gait. PT is recommending return home w/ assist from spouse when medically stable. Spouse will be here at 10 tomorrow for continued training. Goals Bed Mobility Goal Independent Transfer Goal Standby Assistance,Front Wheeled Walker Gait Goal Standby Assistance,Front Wheel Walker Gait Distance 100 Other Goals Pt to ambulate 100 ft independently with LRAD to show improving ability to perform functional mobility. Pt to perform transfer independently with FWW or no AD to show improving ability to perform functional mobility . Days to Meet Goals 5 Frequency of Treatment Frequency Of Treatment Twice a Day Treatment Plan Physical Therapy Treatment Plan Bed Mobility Training,Transfer Training,Gait Training, Therapeutic Exercise,Balance Retraining,Post Op Education, Discharge Planning,Hot or Cold Pack,Neuromuscular Re-ed, Coordination Retraining,Manual Therapy Precautions Lumbar Precautions Log Roll,No Twisting,Limit Bending,Lifting Restriction of 10 lbs,Gait Belt above Incisional Area Weight Bearing Status Weight Bearing Status Weight Bear as Tolerated Recommendations To Nursing Amount of Assist Needed 1 Person Assist Discharge Recommendations PT Discharge Recommendations Home with Assistance, Outpatient PT Other Discharge Recommendations Outpatient PT is recommended at surgeon's discretion to improve deficits. Transportation Needs at Discharge Private Vehicle
--- NOTE | 2023-01-14 15:50 | PC.NURSE ---
PATIENT STILL HAVING DROP IN BP WITH AMBULATION, NOT READY FOR D/C
[2023-01-14 15:55] VITALS: BP 113/66; PULSE 75; RESP 16; TEMP 36.7; O2SAT 97
[2023-01-14 23:17] VITALS: BP 105/54; PULSE 68; RESP 20; TEMP 36.6; O2SAT 94
[2023-01-15] MEDS: HYDROCODONE/ACET 10/325 TABLET 1 TAB PO ×4 (00:31→12:14)
[2023-01-15] MEDS: hydrOXYzine pamoate 25 MG CAPSULE PO ×2 (00:31→12:14)
--- NOTE | 2023-01-15 06:46 | PM.PNPO.1 ---
Subjective Subjective Date Patient Seen: 01/15/23 Time Patient Seen: 06:47 Interval history: Pt says she did reasonably well w/ PT yesterday, but she still can't get out of bed independently and her was hesitant to take her home. She is hoping to make more progress today and discharge later in the day. She is eating and voiding without difficulty and her pain is controlled with oral medication. She complains of anterolateral thigh numbness and pain, R>L. Denies KHAN. Exam Vital Signs (past 8 hours): - 01/14/23 23:17 Temperature 97.9 F Pulse Rate 68 Respiratory Rate 20 Blood Pressure 105/54 L Pulse Oximetry 94 Oxygen Flow Rate 0 Oxygen Delivery Method Nasal Cannula Oxygen Flow Rate 0 Narrative Exam Narrative: 5/5 strength in hip flexors, quadriceps, hamstrings, DF, PF, EHL bilaterally. Sensation to light touch intact in BLE. Calves soft, compressible, nontender. Dressing placed intraoperatively has a quarter-sized area of bloody drainage on left, dry on right. Objective Labs 01/14/23 04:20 PFSH Medical History (Updated 01/14/23 @ 06:14 by Delores Morin PA-C) Ankle edema Frequent UTI HTN (hypertension) Surgical History (Updated 01/14/23 @ 06:14 by Delores Morin PA-C) H/O total hip arthroplasty History of cholecystectomy History of tonsillectomy Hx of discectomy S/P cataract extraction and insertion of intraocular lens Social History household members: spouse Smoking Status: Former smoker Assessment & Plan Post-op Assessment and plan (1) S/P lumbar fusion: Assessment and Plan narrative: Hopeful discharge home today pending progress w/ PT. Will start on dexamethasone in hospital and prescribe medrol misha for discharge to help w/ LE symptoms. (2) Dural tear: Assessment and Plan narrative: Asymptomatic following repair. Postoperative Procedures: Procedures Operation Date: 01/13/23 11:45 Actual Procedure Side Surgeon p L4-5, L5-S1 TLIF with posterior instrumentation -Robot Papa Sutherland MD Postoperative day: 2
[2023-01-15] MEDS: DEXAMETHASONE 4 MG/ML VIAL IV (07:03)
[2023-01-15] MEDS: DOCUSATE 100 MG CAPSULE PO (09:08)
[2023-01-15 09:10] VITALS: BP 118/59; PULSE 65; RESP 18; TEMP 37.4; O2SAT 94
--- NOTE | 2023-01-15 10:03 | PT.IPTN ---
Current Diagnoses Dural tear (01/13/23) Spinal stenosis, lumbar region with neurogenic claudication (01/13/23) Postlaminectomy syndrome, not elsewhere classified (01/13/23) Arthrodesis status (01/13/23) Surgery Performed Operation Date: 01/13/23 11:45 Actual Procedures p L4-5, L5-S1 TLIF with posterior instrumentation -Robot - Papa Sutherland MD Physical Therapy Treatment Note M2 PT-IP Current Condition Start: 01/14/23 12:44 Freq: NEEDED Status: Active Protocol: Document 01/14/23 12:44 AB (Rec: 01/14/23 13:08 AB [id number]) Physical Therapy Current Condition Current Condition Evaluation Date 01/14/23 Treatment Diagnosis s/p lumbar TLIF L4-5, L5-S1 Onset Date 01/13/23 M3 PT-IP Subjective Start: 01/14/23 12:44 Freq: NEEDED Status: Active Protocol: Document 01/15/23 10:57 TS (Rec: 01/15/23 11:10 TS [id number]) Subjective Physical Therapy Visit Type Type Treatment Note Visit Start Time 10:03 Visit Stop Time 10:29 Total Visit Minutes 26 Notes Spouse present for caregiver training Number of SHOW HOST OR HOSTESS Visits 2 Physical Therapy Visit Comments Patient Comments Pt found resting in bed, spouse present, reports continued numbness in LEs and she is taking steroids to assist in recovery. Pt agreeable to PT M4 PT-IP Mobility and Gait Start: 01/14/23 12:44 Freq: NEEDED Status: Active Protocol: Document 01/15/23 10:57 TS (Rec: 01/15/23 11:10 TS [id number]) PT-Bed Mobility Assessment Rolling Type of Rolling Log Rolling Level of Assist Standby Assistance Supine to Sit Supine to Sit Standby Assistance Scooting Scooting to Edge of Bed Standby Assistance PT-Transfer Assessment Sit to and From Stand Sit to and from Stand Minimal Assistance,1 Person Assistance,Use of Upper Extremities Equipment Transfer Assistive Device Gait Belt,Front Wheeled Walker Orthotic/Prosthetic Devices or Brace: No Comments Mobility Comments BP taken in supine 117/67 prior to mobility. Logroll to L side SBA, demonstrates good carryover of spinal precautions. Supine to sit SBA with use of bedrail and BUE support. BP in sitting 132/52, pt denied any dizziness. Spouse donned gait belt and performed sit to stand with pt Basil to come into standing. She ambulated CGA/SBA from spouse ~150' with FWW, pt had no buckling or LOB, denied dizziness. Pt ambulated back to room, was left sitting EOB, preparing for d/c home. Gait Assessment Gait Gait Assistance Required: Standby Assistance,Contact Guard Assist Distance (Feet) 150 Assistive Devices Assistive Device Gait Belt,Front Wheeled Walker Orthotic/Prosthetic Devices or Brace: No Gait Deviations General Gait Pattern Decreased Stride Length, Decreased Feet Clearance Factors Limiting Gait Function Factors Limiting Gait Function Decreased Activity Tolerance, Decreased Sensation,Decreased Strength,Limited Range of Motion,Pain,Poor Balance Comments Gait Comments See mobility comments PT-Balance Assessment Sitting Balance and Reactions Static Sitting Balance Ability Good Dynamic Sitting Balance Ability Good Standing Balance and Reactions Static Standing Balance Ability Good Dynamic Standing Balance Ability Good Device Used FWW M5 PT-IP Objective Assessments Start: 01/14/23 12:44 Freq: NEEDED Status: Active Protocol: Document 01/14/23 12:44 AB (Rec: 01/14/23 13:08 AB [id number]) Orientation Orientation/Cognition Level of Alertness Alert Orientation Name,Age,Birthday,Month,Date, Year,Day of Week,Place, Situation Language Function Ability No Deficits Noted Safety Awareness Understands Safety Issues Memory Description No Deficits Noted Gross Range of Motion Upper Extremity ROM Assessment Within Functional Limits Lower Extremity ROM Assessment Within Functional Limits Strength Upper Extremity Strength Assessment Within Functional Limits Lower Extremity Strength Assessment Bilaterally Impaired Comments Strength Comments bilateral hip flexors: 3+/5 bilateral knee extensors: 4/5 M6 PT-IP Treatment Start: 01/14/23 12:44 Freq: NEEDED Status: Active Protocol: Document 01/15/23 10:57 TS (Rec: 01/15/23 11:10 TS [id number]) Physical Therapy Treatment Education Education Provided Precautions,Weight Bearing Status,Post-Op Packet,Safety Brace Education Patient M7 PT-IP Assessment and Plan Start: 01/14/23 12:44 Freq: NEEDED Status: Active Protocol: Document 01/15/23 10:57 TS (Rec: 01/15/23 11:10 TS [id number]) PT Summary Assessment and Plan Potential Rehabilitation Potential Good Summary Impairments Pain,ROM,Strength,Balance,Bed Mobility,Transfers,Gait, Activity Tolerance Progress Towards Goals Progressing Toward Goals Assessment Summary Evelia is making good progress with her mobility. She continues to be SBA for bed mobility and demonstrates good carryover of precautions. She continues to require Basil for sit to stands due to weakness in LEs, she continues to have numbness on lateral sides of both LEs. She progressed her gait to ~150' SBA/CGA w/FWW. BP was unremarkable this session, denied any dizziness. PT is recommending return home w/assist from spouse. Goals Bed Mobility Goal Independent Transfer Goal Standby Assistance,Front Wheeled Walker Gait Goal Standby Assistance,Front Wheel Walker Gait Distance 100 Other Goals Pt to ambulate 100 ft independently with LRAD to show improving ability to perform functional mobility. Pt to perform transfer independently with FWW or no AD to show improving ability to perform functional mobility . Days to Meet Goals 5 Frequency of Treatment Frequency Of Treatment Twice a Day Treatment Plan Physical Therapy Treatment Plan Bed Mobility Training,Transfer Training,Gait Training, Therapeutic Exercise,Balance Retraining,Post Op Education, Discharge Planning,Hot or Cold Pack,Neuromuscular Re-ed, Coordination Retraining,Manual Therapy Precautions Lumbar Precautions Log Roll,No Twisting,Limit Bending,Lifting Restriction of 10 lbs,Gait Belt above Incisional Area Weight Bearing Status Weight Bearing Status Weight Bear as Tolerated Recommendations To Nursing Amount of Assist Needed 1 Person Assist Discharge Recommendations PT Discharge Recommendations Home with Assistance, Outpatient PT Other Discharge Recommendations Outpatient PT is recommended at surgeon's discretion to improve deficits. Transportation Needs at Discharge Private Vehicle
--- NOTE | 2023-01-15 12:10 | OT.IP.TRT ---
Current Diagnoses Dural tear (01/13/23) Spinal stenosis, lumbar region with neurogenic claudication (01/13/23) Postlaminectomy syndrome, not elsewhere classified (01/13/23) Arthrodesis status (01/13/23) Surgery Performed Operation Date: 01/13/23 11:45 Actual Procedures p L4-5, L5-S1 TLIF with posterior instrumentation -Robot - Papa Sutherland MD Occupational Therapy Treatment Note M2 OT-IP Current Condition Start: 01/14/23 12:04 Freq: Status: Active Protocol: Document 01/14/23 08:48 [facility] (Rec: 01/14/23 12:31 [facility] [id number]) Occupational Therapy Current Condition Current Condition Evaluation Date 01/14/23 Treatment Diagnosis S/P L4-5 , L5-S1 PLIF Diagnosis Onset Date 01/13/23 M3 OT- IP Subjective and Pain Start: 01/14/23 12:04 Freq: Status: Active Protocol: Document 01/15/23 12:10 [facility] (Rec: 01/15/23 12:26 [facility] [id number]) OT- Subjective Occupational Therapy Visit Type Type Treatment Note Visit Start Time 12:03 Visit Stop Time 12:11 Total Visit Minutes 8 Occupational Therapy Visit Comments Patient Comments Pt not wanting to get dressed yet , awaiting lunch. Patient/Caregiver Goals To go home. OT Pain Assessment Pain When Pain Assessed At Rest Pain Present Pain Present Pain Reported Location Lower Back Intensity 7 Scale Used Numeric (0 - 10) M4 OT- IP ADL's Start: 01/14/23 12:04 Freq: Status: Active Protocol: Document 01/15/23 12:10 [facility] (Rec: 01/15/23 12:26 [facility] [id number]) OT ADL-Dressing Comments OT Dressing Comments Re-educated to pt best to use LB dressing equipment or have her to assist in order to best follow her back precautions. OT ADL-Toileting Comments OT Toileting Comments Reminded pt may be best to have BSC next to the bed as pt has to get up often to use the bathroom at night. Pt's aware to have a night light on and be there to assist. Also spoke of getting a toilet paper aid/bidet, wet ones and stand to wipe for increased ease to follow her back precautions. OT ADL-Bathing Comments OT Bathing Comments Educated not to get the back dressing wet and best to cover it with plastic and tape. M5 OT- IP IADL's Start: 01/14/23 12:04 Freq: Status: Active Protocol: Document 01/14/23 08:48 [facility] (Rec: 01/14/23 12:31 [facility] [id number]) OT-Instrumental Activities of Daily Living Deficits IADL Deficits Identified Deficits Home Safety Awareness Awareness of Need for Assistance at Home Good Awareness Ability to Problem Solve Emergency Able to Problem Solve Situations Meal Preparation Meal Preparation Comments At this time her will assist her. [employer] Helpers Comments At this time her will assist her. M6 OT- IP Functional Cognition Start: 01/14/23 12:04 Freq: Status: Active Protocol: Document 01/14/23 08:48 [facility] (Rec: 01/14/23 12:31 [facility] [id number]) Cognitive Factors Limiting Selfcare Function Cognitive Ability Level of Alertness Alert Patient Orientation Name,Age,Birthday,Month,Date, Year,Day of Week,Place, Situation Attention Span Ability Capable of Focused Attention, Capable of Sustained Attention Ability to Follow Commands Able to Follow One Step Commands Cognitive Comments Cognitive Assessment Comments Pt able to follow directions for ADL and mobility needs. Pt needing safety reminders to use her hands to push up from surfaces sitting up from and to reach back before sitting down. OT- Vision and Hearing OT- Hearing Assessment OT- Hearing Assessment WFL OT- Vision Assessment Visual Acuity Glasses All The Time M8 OT- IP Objective Assessments Start: 01/14/23 12:04 Freq: Status: Active Protocol: Document 01/14/23 08:48 [facility] (Rec: 01/14/23 12:31 [facility] [id number]) OT Gross Range of Motion Upper Extremity Range of Motion Assessment Within Functional Limits OT Strength Upper Extremity Strength Assessment Within Functional Limits M9 OT- IP Assessment and Plan Start: 01/14/23 12:04 Freq: Status: Active Protocol: Document 01/15/23 12:10 [facility] (Rec: 01/15/23 12:26 [facility] [id number]) OT Summary Assessment and Plan Potential Rehabilitation Potential Good Analytic Complexity at Evaluation Low Summary OT Impairments Pain,Balance,Functional Mobility,Dressing,Toileting, Bathing,Toilet Transfers, Shower Transfers,Activity Tolerance Progress Towards Goals Progressing Toward Goals Assessment Summary Pt awaiting to go home after lunch. Able to over OT suggestions and equipment needs with pt and her . Pt to go home today. Goals Grooming Goal Independent Dressing Goal Independent Toileting Goal Independent Bathing Goal Independent Toilet Transfer Goal Independent Shower Transfer Goal Independent Days to Meet Goals 4 Frequency of Treatment Frequency Of Treatment Once a Day Treatment Plan OT Treatment Plan ADL Training,Functional Mobility,Patient/Family Education,Discharge Planning Discharge Recommendations OT Discharge Recommendations Home with Assistance Home Equipment Needs Lb dressing equipment, toilet paper aid Transportation Needs at Discharge Private Vehicle
--- NOTE | 2023-01-15 13:55 | PC.NURSE ---
Patient A&Ox4, VSS, afebrile on RA. Held a.m antihypertensive medication as patient with soft BP previous day. She reports pain well controlled with PRN Po Hydrocodone. Dressing to back c/d/i. She is able to particpate with PT and is cleared by PT for discharge home with family. She verbalizes understanding of medications, site care, activity restrictions as well as s/sx of infection, and post op follow up appointment.
--- NOTE | 2023-01-15 15:21 | CM.DPNOTE ---
DC Note Discharge home w/spouse, cleared by therapies for this plan. No barriers identified to discharge home today. Outpatient follow up. JW
== END 2023-01-15 13:22 | disposition home or self-care (01) | DRG 454 ==
PROVIDERS: Admitting Provider Orthopaedic Surgery Orthopaedic Surgery of the Spine; PCP Nurse Practitioner; Referring Provider Orthopaedic Surgery Orthopaedic Surgery of the Spine; Visit Provider Orthopaedic Surgery Orthopaedic Surgery of the Spine
PROC: 0SG00AJ Fusion of Lumbar Vertebral Joint with Interbody Fusion Device, Posterior Approach, Anterior Column, Open Approach (ICD-10-PCS; principal; 2023-01-13 11:45)
DX: M96.1 Postlaminectomy syndrome, not elsewhere classified (principal); G97.41 Accidental puncture or laceration of dura during a procedure; M48.061 Spinal stenosis, lumbar region without neurogenic claudication; M48.07 Spinal stenosis, lumbosacral region; M54.16 Radiculopathy, lumbar region; I10 Essential (primary) hypertension; Z87.891 Personal history of nicotine dependence
CPT/HCPCS: 72100; 76000; 85014; 85018; 97116; 97161; 97165; 97530; 97535; C1713; C9290; J0171; J0330; J0690; J1100; J1170; J2405; J2704